=== PATIENT | female | born 1940 | race Caucasian/White ===

== ENCOUNTER 2018-02-05 08:53 | Outpatient (RCR) | payer MEDICARE | END 2018-02-06 | LOC: PT 08:53 | PROVIDERS: ATTEND Orthopaedic Surgery | DX: S42.301D Unspecified fracture of shaft of humerus, right arm, subsequent encounter for fracture with routine healing (principal) | CPT/HCPCS: 97110; 97162; G8984; G8985 ==

== ENCOUNTER 2018-03-05 10:53 | Outpatient (RCR) | payer MEDICARE | END 2018-03-08 | LOC: PT 10:53 | PROVIDERS: ATTEND Orthopaedic Surgery | DX: S42.301D Unspecified fracture of shaft of humerus, right arm, subsequent encounter for fracture with routine healing (principal); M25.511 Pain in right shoulder; M25.611 Stiffness of right shoulder, not elsewhere classified; M62.81 Muscle weakness (generalized) | CPT/HCPCS: 97010; 97110 ×12; G8984; G8985 ==

== ENCOUNTER 2018-03-10 08:00 | Outpatient (RCR) | payer MEDICARE | END 2018-04-08 | LOC: PT 08:00 | PROVIDERS: ATTEND Orthopaedic Surgery | DX: S42.301A Unspecified fracture of shaft of humerus, right arm, initial encounter for closed fracture (principal); M25.511 Pain in right shoulder; M25.611 Stiffness of right shoulder, not elsewhere classified; M62.81 Muscle weakness (generalized) ==

== ENCOUNTER 2021-10-01 11:00 | Outpatient (RCR) | payer MEDICARE | END 2021-10-06 | LOC: PT 11:00 | PROVIDERS: ATTEND Orthopaedic Surgery Sports Medicine | DX: M17.12 Unilateral primary osteoarthritis, left knee (principal); Z96.652 Presence of left artificial knee joint ==

== ENCOUNTER → 2021-11-06 | Outpatient (RCR) | payer MEDICARE | LOC: PT 10-09 12:59 | PROVIDERS: ATTEND Orthopaedic Surgery Sports Medicine | DX: M17.12 Unilateral primary osteoarthritis, left knee (principal) | CPT/HCPCS: 97139 ==

== ENCOUNTER → 2025-02-24 | Outpatient (REF) | payer MEDICARE ==
[~2025-02-24] MED LIST: B12 ACTIVE1000 MCG; B12 ACTIVE1000 MCG PO; CALTRATE 600 +1 EAC1 PO; COCONUT OIL1000 MG; DEPAKOTE SPRIN125 MG PO; DIVALPROEX SOD125 M1 PO; DONEPEZIL HCL10 MG; DONEPEZIL HCL10 MG PO; HYDROCHLOROTHIA25 MG PO; LEXAPRO20 MG PO; LOSARTAN POTASS25 MG PO; MAGNESIUM; MAGNESIUM OXID400 MG PO; MEMANTINE HCL E28 MG PO; MEMANTINE HCL10 MG; METFORMIN HCL500 MG PO; MULTI-VITAMIN1 EAC1 PO; MULTIVITAMIN PO; POTASSIUM; POTASSIUM GLUC500 MG PO; PRAVASTATIN SOD80 MG; PRAVASTATIN SOD80 MG PO; QUETIAPINE FUMA25 MG PO; QUETIAPINE FUMA50 MG PO
[2025-02-24 14:10] LABS: BASOPHILS % 0.5 % (0.0-1.0); EOSINOPHILS % 0.8 % (0.0-6.0); LYMPHOCYTES % 30.8 % (18.0-39.1); MONOCYTES % 7.8 % (4.4-11.3); NEUTROPHILS % 60.0 % (38.7-80.0); RED CELL DISTRIBUTION WIDTH 12.7 % (11.7-14.4)
[2025-02-24 15:06] LABS: EST GLOMERULAR FILTRATION RATE 72.0 ML/MIN (>=60)
== END ==
LOC: MAMMO 13:04
PROVIDERS: ATTEND Surgery
DX: Z85.3 Personal history of malignant neoplasm of breast (principal)
CPT/HCPCS: 36415; 71046; 77066; 80053; 82378; 85025